=== PATIENT | female | born 1995 | race Caucasian/White ===

== ENCOUNTER 2018-10-15 09:39 | Emergency (ER) | payer OTHER ==
[~2018-10-15] VITALS: Ht 154.9 cm; Wt 39.5 kg
[~2018-10-15 09:39] MED LIST: AMOX250C PO
[2018-10-15 09:47] VITALS: BP_SYST 138
--- NOTE | 2018-10-15 09:50 | NUR ---
Patient triaged and placed in waiting room. VSS and patient appears in no acute distress at this time. Accompanied by FRIEND, awaiting available bed, and MD notified of need for MSE.
--- NOTE | 2018-10-15 10:20 | NUR ---
Note vonda in EDM - 10/15/18 at 1326 by [email or web address] patient AOx4 with complaints of a cough x1 day. patient also complains of upper sholder pain 01/28. no other complaints at this time.
--- NOTE | 2018-10-15 10:33 | NUR ---
Pt placed in bed 3
--- NOTE | 2018-10-15 10:55 | NUR ---
ER at bedside examining patient.
--- NOTE | 2018-10-15 10:58 | NUR ---
AOx4 arrived from home after sever backpain shes never felt before. patient states "i felt like i was getting sick yesterday." denies, past medical hx, drug use, but uses ETOH on the weekends. 0/3 pain that is the lower part, its sharp w/o radiation.
--- NOTE | 2018-10-15 11:55 | NUR ---
patient resting with dad at bedside. no other complaints
[2018-10-15] MEDS ORDERED: ACETAMINOPHEN 500 MG TABLET PO ONE (12:15)
--- NOTE | 2018-10-15 12:20 | NUR ---
Note undone in EDM - 10/15/18 at 1327 by [email or web address] Patient given written and verbal discharge instructions and verbalizes understanding. ER discussed with patient the results and treatment provided. Patient in stable condition. ID arm band removed. Rx of Juani with codeine given. Patient educated on pain management and to follow up with PMD. Pain Scale 10. Opportunity for questions provided and answered. Medication side effect fact sheet provided.
--- NOTE | 2018-10-15 12:29 | NUR ---
patient given pain medication upon departure for headache 3/10 pain.
[2018-10-15 12:32] VITALS: BP_SYST 101
--- NOTE | 2018-10-15 12:45 | NUR ---
Patient given written and verbal discharge instructions and verbalizes understanding. ER MD discussed with patient the results and treatment provided. Patient in stable condition. ID arm band removed. Rx of Prometh with codeine given. Patient educated on pain management and to follow up with PMD. Pain Scale 0/10. Opportunity for questions provided and answered. Medication side effect fact sheet provided.
== END 2018-10-15 12:45 | disposition home or self-care (01) ==
LOC: SED 09:39
DX: J06.9 Acute upper respiratory infection, unspecified (principal); R03.0 Elevated blood-pressure reading, without diagnosis of hypertension
CPT/HCPCS: 99283